=== PATIENT | female | born 1970 | race Caucasian/White ===

== ENCOUNTER 2016-10-03 09:24 | Inpatient (IN) | payer BC ==
[2016-09-30 14:33] VITALS: BMI 27.5
[~2016-10-03] VITALS: Ht 165.1 cm; Wt 79.0 kg
[2016-10-03] VITALS (19 sets, daily range): BP systolic 107–150; BP diastolic 43–77; PULSE 58–74; RESP 15–36; Ht 165.1 cm; Wt 79.0 kg
[~2016-10-03 09:24] MED LIST: BUPIVACAINE 0.25% (MPF) 30 ML INJ INJ ONE
[2016-10-03] MEDS ORDERED: AMOX1TAB10 PO (10:28)
[2016-10-03] MEDS ORDERED: CROM10DR6 BOTH EYES (10:28)
[2016-10-03] MEDS ORDERED: NALT1TAB PO (10:28)
--- NOTE | 2016-10-03 11:40 | HPN ---
Date/Time of Note Date/Time of Note DATE: 10/03/16 TIME: 11:40 Interval H&P Admission Note Pt. seen H&P reviewed: No system changes LEN GUTHRIE MD Oct 03, 2016 11:40
[2016-10-03] MEDS ORDERED: POLYMYXIN/BACITRACIN 1L IRRIG ONE (11:46)
[2016-10-03] MEDS ORDERED: ACETAMINOPHEN 325 MG TAB PO PRN (12:00)
[2016-10-03] MEDS ORDERED: NALOXONE (0.4 MG/ML) INJ IV PRN (12:00)
[2016-10-03] MEDS ORDERED: DIPHENHYDRAMINE 50 MG INJ IV PRN ×2 (12:00→13:30)
[2016-10-03] MEDS ORDERED: AL HYDROX/MG HYDROX/SIMETH 30 ML CUP PO PRN (12:00)
[2016-10-03] MEDS: CEFAZOLIN 1 GM/50 ML (PMX) 50 ML IVPB SCH ×2 (12:00→20:22)
[2016-10-03] MEDS ORDERED: DIPHENHYDRAMINE 25 MG CAP PO PRN (12:00)
[2016-10-03] MEDS ORDERED: BISACODYL 10 MG SUPP PR PRN (12:00)
[2016-10-03] MEDS ORDERED: CEPASTAT LOZENGE MT PRN (12:00)
[2016-10-03] MEDS ORDERED: ONDANSETRON 4 MG INJ IV PRN ×2 (12:00→13:30)
[2016-10-03] MEDS ORDERED: BUPIVACAINE 0.25% (MPF) 30 ML INJ ONE (12:05)
[2016-10-03] MEDS ORDERED: BUPIVACAINE 0.25%/EPI (SDV) 30 ML INJ ONE (12:05)
[2016-10-03] MEDS ORDERED: CA GLUCONATE (GM) 10% 10ML INJ ONE (12:06)
[2016-10-03] MEDS ORDERED: THROMBIN 5000 UNIT VIAL ONE (12:08)
[2016-10-03] MEDS ORDERED: LIDOCAINE 100 MG SYRINGE ONE (12:11)
[2016-10-03] MEDS ORDERED: CEFAZOLIN 1 GM INJ ONE (12:11)
[2016-10-03] MEDS ORDERED: DEXAMETHASONE 4 MG/ML 1 ML INJ ONE (12:11)
[2016-10-03] MEDS ORDERED: ONDANSETRON 4 MG INJ ONE (12:11)
[2016-10-03] MEDS ORDERED: PROPOFOL 20 ML ONE (12:11)
[2016-10-03] MEDS ORDERED: NEOSTIGMINE 3 MG/3 ML SYRINGE ONE (12:11)
[2016-10-03] MEDS ORDERED: GLYCOPYRROLATE 1 MG INJ ONE (12:11)
[2016-10-03] MEDS ORDERED: ROCURONIUM 50 MG INJ ONE (12:11)
[2016-10-03] MEDS ORDERED: MIDAZOLAM 1 MG/ML 2 ML INJ ONE (12:11)
[2016-10-03] MEDS ORDERED: CA CHLORIDE 10% 10 ML SYRINGE ONE (12:14)
[2016-10-03] MEDS ORDERED: BUPIVACAINE 0.25% (MPF) 30 ML INJ INJ ONE (12:59)
[2016-10-03] MEDS ORDERED: POLYMYXIN/BACITRACIN 1L IRRIG IRR ONE (12:59)
[2016-10-03] MEDS ORDERED: SURGIFOAM POWDER 1 GM KIT ONE (12:59)
[2016-10-03] MEDS ORDERED: THROMBIN 5000 UNIT VIAL TOP ONE (13:02)
[2016-10-03] MEDS ORDERED: FENTAnyl 50 MCG/ML VIAL ONE (13:12)
[2016-10-03] MEDS ORDERED: MEPERIDINE 25 MG INJ IV PRN (13:30)
[2016-10-03] MEDS ORDERED: LABETALOL HCL 20MG INJ IV PRN (13:30)
[2016-10-03] MEDS ORDERED: HYDROmorphONE (0.2 MG/ML) 10ML SYG IV PRN ×3 (13:30)
[2016-10-03] MEDS ORDERED: MIDAZOLAM 1 MG/ML 2 ML INJ IV PRN (13:30)
[2016-10-03] MEDS ORDERED: hydrALAzine 20 MG INJ IV PRN (13:30)
[2016-10-03] MEDS ORDERED: FENTAnyl 50 MCG/ML VIAL IV PRN ×3 (13:30)
[2016-10-03] MEDS ORDERED: EPHEDrine SULFATE 50 MG/5 ML SYG IV PRN (13:30)
[2016-10-03] MEDS ORDERED: TRIMETHOBENZAMIDE 100 MG/ML VIAL IM PRN (13:30)
[2016-10-03] MEDS ORDERED: METOCLOPRAMIDE 10 MG INJ ONE (13:39)
[2016-10-03] MEDS: HYDROmorphONE 0.2 MG/ML PCA IV SCH ×2 (14:36→21:16)
[2016-10-03] MEDS ORDERED: LACTATED RINGER'S 1,000 ML IV* ONE (15:30)
[2016-10-03] MEDS ORDERED: CEFAZOLIN 2 GM/50 ML (PMX) 50 ML IVPB ONE (15:30)
--- NOTE | 2016-10-03 16:48 | RADRPT ---
PROCEDURE: XR Lumbar Spine one view. CLINICAL INDICATION: Low back pain. Intraoperative. TECHNIQUE: Prone portable cross-table lateral. COMPARISON: No prior studies are available for comparison. FINDINGS: For the purposes of this report, the last apparent true disc level is considered to be L5-S1. Based on this, the posterior needle marker is are present at lower L3 spinous process level and upper L5 spinous process level. IMPRESSION: 1. Intraoperative imaging as described above. RPTAT: QQ .Kenrick Singh MD, Date Time Electronically viewed and signed by .Kenrick Singh MD, on 10/03/2016 16:48 .R/
--- NOTE | 2016-10-03 16:49 | RADRPT ---
PROCEDURE: XR Lumbar Spine one view. CLINICAL INDICATION: Low back pain. Intraoperative. TECHNIQUE: Prone portable cross-table lateral. COMPARISON: Prior study done earlier the same day. FINDINGS: For the purposes of this report, the last apparent true disc level is considered to be L5-S1. Based on this, the posterior surgical instrument is present overlying the L5-S1 level. IMPRESSION: 1. Intraoperative imaging as described above. RPTAT: QQ .Kenrick Snigh MD, MD Date Time Electronically viewed and signed by .Kenrick Singh MD, on 10/03/2016 16:48 .R/
[2016-10-03] MEDS: D5W-0.45 NACL + KCL 20 MEQ 1,000 ML IV SCH ×2 (17:18→21:55)
[2016-10-03] MEDS: DOCUSATE SODIUM 100 MG CAP PO SCH (20:22)
[2016-10-03] MEDS: CYCLOBENZAPRINE 10 MG TAB PO PRN (20:30)
--- NOTE | 2016-10-03 21:17 | OPR ---
DATE OF OPERATION: 10/03/2016 PREOPERATIVE DIAGNOSES: Right L5-S1 disk herniation with radiculopathy. POSTOPERATIVE DIAGNOSIS: Right L5-S1 disk herniation with radiculopathy. OPERATION PERFORMED: 1. Right L5-S1 diskectomy. 2. Lateral localizing film x2. 3. Use of operative microscope. 4. Intraoperative neuromonitoring (1 hour). 5. Epidural injection via catheter. PRIMARY SURGEON: Joseluis Montemayor MD WRAPPER OPERATOR: DARCIE Viveros NEED FOR BUSINESS SERVICES OFFICER: During this spinal surgical procedure, my plumber's assistant was used to retract and protect the spinal nerves and dural sac. My plumber's assistant also employed the suction catheters to evacuate blood from the surgical field to improve visualization of the neural structures. The plumber's assistant was medically necessary to facilitate the completion of the surgery in a safe and expeditious manner. [facility] regulations, as well as hospital bylaws, preclude the use of non-licensed health care personnel, such as operating room technicians, to perform these functions. FINDINGS: Neuromonitoring at the start of the case revealed right S1 amplitude down 40%. At the end of the case, this returned to normal. The patient had a right-sided herniation at L5-S1. ESTIMATED BLOOD LOSS: 20 mL. DRAINS: None. SPECIMENS: Disk COMPLICATIONS OF PROCEDURES: None. ANESTHESIOLOGIST: Devon Mcdonald MD TYPE OF ANESTHESIA: General. INDICATIONS FOR PROCEDURE: This is a 46-year-old female with right lumbosacral radiculopathy in the setting of a disk herniation. She had failed nonoperative measures; therefore, I recommended proceeding with the above-mentioned surgery. Preoperatively, we discussed the risks, benefits, and alternatives. She understood and wished to proceed. DESCRIPTION OF PROCEDURE IN DETAIL: The patient was identified in the preoperative holding area, given Ancef antibiotic, taken to the operating room, where she was successfully placed under general anesthesia. Neuromonitoring leads were placed, sequential compressive devices were applied. Neuromonitoring was utilized during the procedure for 1 hour to include SSEP, MEP, and EMG. This was performed by FNZ. Start time was 12:45 p.m., closure time was 1:45 p.m. Nerve signals at start showed right S1 amplitude down 40%. The patient was placed on the operating room table, prone position over a Wesley frame. All bony prominences were well padded. The back was then prepped and draped in usual sterile fashion. Spinal needles were placed, lateral localizing films obtained to confirm the correct level. The subcutaneous tissue was injected with Marcaine and epinephrine. An incision was then made over the L5-S1 level. Incision was taken down to the dorsal fascia, which was incised with Bovie cautery. I then subperiosteally dissected the right L5 lamina. Jackie retractor was placed. Kerrison was placed under what was felt to be the L5 lamina and repeat lateral films obtained to confirm the correct levels. Once this was confirmed, microscope was brought in and a right-sided hemilaminotomy was performed. Ligamentum flavum was the sharply dissected. I then identified the nerve root which my plumber's assistant retracted medially. I made an annulotomy followed by limited microdiskectomy. Once this was done, all nerve signals returned to normal. I then irrigated the disk space and the wound. Hemostasis was achieved with Surgifoam and bipolar cautery. At this point, all nerve signals were normal. I passed an epidural catheter through which I injected 100 mcg of fentanyl. Anesthesiologist thor peripheral blood, which was spun using the [employer] device, the PPP was mixed with thrombin and injected over the dura for hemostatic purposes. Retractors were removed and I closed the deep fascia with #1 Vicryl stitch. I closed subcutaneous tissue with 2-0 Vicryl stitch. Microscope was taken off the field. A 4-0 Monocryl closure was then performed. Dermabond was then applied. The patient was then awakened from anesthesia and taken to recovery room in stable condition. Lap, sponge counts were correct x2. There were no apparent complications during the procedure. The patient will be admitted to the [facility] for routine postoperative care to include pain control, neurovascular checks, antibiotics, and physical therapy. Dictated By: JOSELUIS FREITAS/KELLY Conf#: [id number] DID#: [id number] LEANNE
[2016-10-04 00:34] VITALS: BP 100/57; PULSE 83; RESP 17
[2016-10-04] MEDS: CEFAZOLIN 1 GM/50 ML (PMX) 50 ML IVPB SCH (03:23)
[2016-10-04] MEDS: D5W-0.45 NACL + KCL 20 MEQ 1,000 ML IV SCH ×3 (03:24→18:00)
[2016-10-04 05:42] LABS: ADD SCAN DIFF NO
[2016-10-04 05:48] LABS: BASOPHILS % 0.2 % (0.0-2.0); EOSINOPHILS % 0.1 % (0.0-7.0); HEMATOCRIT 34.4 % (37.0-47.0); HEMOGLOBIN 11.6 g/dl (12.0-16.0); LYMPHOCYTES # 3.3 10^3/ul (0.8-2.9); LYMPHOCYTES % 19.1 % (15.0-51.0); MEAN CORPUSCULAR HEMOGLOBIN 28.3 pg (29.0-33.0); MEAN CORPUSCULAR HGB CONC 33.7 g/dl (32.0-37.0); MEAN CORPUSCULAR VOLUME 83.9 fl (82.0-101.0); MEAN PLATELET VOLUME 10.4 fl (7.4-10.4); MONOCYTE # 1.3 10^3/ul (0.3-0.9); MONOCYTES % 7.3 % (0.0-11.0); NEUTROPHIL # 12.5 10^3/ul (1.6-7.5); NEUTROPHILS % 72.9 % (39.0-77.0); PLATELET COUNT 256 10^3/UL (140-415); WHITE BLOOD COUNT 17.1 10^3/ul (4.8-10.8)
[2016-10-04] MEDS: PANTOPRAZOLE 40 MG INJ IV SCH (05:52)
[2016-10-04 06:39] LABS: POTASSIUM 3.9 mmol/L (3.5-5.1)
[2016-10-04 06:42] LABS: CREATININE 0.7 mg/dl (0.44-1.00)
[2016-10-04 06:43] LABS: CALCIUM 8.5 mg/dl (8.4-10.2); MAGNESIUM 1.9 mg/dl (1.7-2.5)
[2016-10-04] MEDS: HYDROmorphONE 0.2 MG/ML PCA IV SCH (07:40)
[2016-10-04 08:18] VITALS: BP 100/59; RESP 17
[2016-10-04] MEDS ORDERED: FLUCONAZOLE 150 MG TAB PO ONE (09:00)
[2016-10-04] MEDS: DOCUSATE SODIUM 100 MG CAP PO SCH ×2 (09:05→23:06)
[2016-10-04] MEDS ORDERED: HYDROCODONE/APAP (10/325) TAB PO SCH (09:30)
[2016-10-04 09:47] LABS: ADD UMIC NO; URINE BILIRUBIN (Dip) NEGATIVE (NEGATIVE); URINE BLOOD (Dip) NEGATIVE (NEGATIVE); URINE COLOR LT. YELLOW (YELLOW); URINE GLUCOSE (Dip) NEGATIVE (NEGATIVE); URINE KETONES (Dip) NEGATIVE (NEGATIVE); URINE LEUKOCYTE ESTERASE (Dip) NEGATIVE (NEGATIVE); URINE NITRITE (Dip) NEGATIVE (NEGATIVE); URINE TOTAL PROTEIN (Dip) NEGATIVE (NEGATIVE); URINE UROBILINOGEN (Dip) 0.2 E.U./dL (0.1-1.0)
[2016-10-04] MEDS ORDERED: HYDROCODONE/APAP (10/325) TAB PO PRN (10:00)
--- NOTE | 2016-10-04 11:06 | DS ---
DATE OF ADMISSION: 10/03/2016 DATE OF DISCHARGE: 10/05/2016 ADMITTING DIAGNOSIS: L5 to S1 disk herniation. DISCHARGE DIAGNOSIS: L5 to S1 disk herniation. PROCEDURE: The patient was taken to the operating room on 10/03/2016, underwent L5 to S1 microdiskectomy. HOSPITAL COURSE: The patient was admitted to the [facility] after undergoing the above procedure. Her postoperative course was uncomplicated. She was not cleared by PT on post-op day 1. By postoperative day 2, she was deemed stable for discharge with followup arranged with the undersigned. Dictated By: LEN GUTHRIE MD BB/KELLY Conf#: [id number] DID#: [id number] MTDD
[2016-10-04] MEDS: HYDROCODONE/APAP (10/325) TAB PO PRN ×2 (14:54→19:23)
[2016-10-04] MEDS: HYDROmorphONE 1 MG/ML SYG IV PRN (17:13)
--- NOTE | 2016-10-04 18:31 | CONS ---
Date/Time of Note Date/Time of Note DATE: 10/04/16 TIME: 18:26 Assessment/Plan Assessment/Plan Problems: (1) Status post lumbar discectomy Status: Acute Comment: Patient is immediately postoperative. She reports she is having significant amount of pain and does not believe that she will be able to go home this evening. This is possibly an appropriate decision given that she lives in a two-story house. However we will see how she does with adjustment pain medication and physical therapy. Consultation Date/Type/Reason Admit Date/Time October 03, 2016 Date of Consultation: Oct 03, 2016 Type of Consultation: Internal medicine Reason for Consultation Postoperative assistance Referring Provider: LEN GUTHRIE MD Hx of Present Illness 46-year-old female who lives in a two-story house with her 16-year-old and [id number] twins. She had a history of a back injury many years ago. She has been having right leg sciatic symptoms for some time and finally has come in for surgical repair. She is now postoperative and reports that her right leg symptoms stopped after surgery. She reports she is otherwise in good health and has no major medical issues actively at the time of coming into the hospital for surgery. She is complaining of a decent amount of back pain at the surgical incision site. Constitutional: no complaints Eyes: no complaints ENT: no complaints Respiratory: no complaints Cardiovascular: no complaints Gastrointestinal: no complaints Genitourinary: no complaints Musculoskeletal: back pain Skin: no complaints Neurologic: no complaints Past Medical History Remote history of allergic rhinitis; history of dysthymia; sciatica Past Surgical History Past Surgical Hx: noncontributory Family History Significant Family History: no pertinent family hx Social History Alcohol Use: rarely Smoking Status: Never smoker Drug Use: none Other Social History lives with her spouse and 3 children and is two-story home Exam/Review of Systems Vital Signs Vitals Vital Signs Date Time Temp Pulse Resp B/P Pulse Ox O2 Delivery O2 Flow Rate FiO2 10/04/16 08:18 99.0 61 17 100/59 97 10/04/16 00:34 Room Air 10/03/16 18:06 2.0 Intake and Output 10/03/16 10/03/16 10/04/16 15:00 23:00 07:00 Intake Total 1700 ml 650 ml 1566 ml Output Total 25 ml 1000 ml 1400 ml Balance 1675 ml -350 ml 166 ml Exam Constitutional: alert, oriented ENMT: mucosa pink and moist, nl external ears & nose, nl lips & teeth, nl nasal mucosa & septum Neck: non-tender, supple Respiratory: clear to auscultation, normal air movement Cardiovascular: nl pulses, regular rate and rhythm Gastrointestinal: nl liver, spleen, non-tender, soft Extremities: normal pulses Results Result Diagram: 10/04/16 0430 10/04/16 0430 Results 24 hrs Laboratory Tests Test 10/04/16 04:30 10/04/16 06:10 Anion Gap 14 Basophils # 0.0 Basophils % 0.2 Blood Urea Nitrogen 10 Calcium Level 8.5 Carbon Dioxide Level 24 Chloride Level 105 Creatinine 0.70 Eosinophils # 0.0 Eosinophils % 0.1 Glucose Level 105 Hematocrit 34.4 L Hemoglobin 11.6 L Lymphocytes # 3.3 H Lymphocytes % 19.1 Magnesium Level 1.9 Mean Corpuscular Hemoglobin 28.3 L Mean Corpuscular Hemoglobin Concent 33.7 Mean Corpuscular Volume 83.9 Mean Platelet Volume 10.4 Monocytes # 1.3 H Monocytes % 7.3 Neutrophils # 12.5 H Neutrophils % 72.9 Nucleated Red Blood Cells # 0.0 Nucleated Red Blood Cells % 0.0 Platelet Count 256 Potassium Level 3.9 Red Blood Count 4.10 L Red Cell Distribution Width 13.0 Sodium Level 139 White Blood Count 17.1 H Urine Bilirubin NEGATIVE Urine Clarity CLEAR Urine Color LT. YELLOW Urine Glucose NEGATIVE Urine Hemoglobin NEGATIVE Urine Ketones NEGATIVE Urine Leukocyte Esterase NEGATIVE Urine Nitrite NEGATIVE Urine Specific [place] 1.010 Urine Total Protein NEGATIVE Urine Urobilinogen 0.2 E.U./dL Urine pH 5.5 Medications Medications Current Medications Potassium Chloride/Dextrose/ Sod Cl (D5-1/2ns + KCl 20 Meq) 1,000 ml @ 100 mls/ hr Q10H IV Last administered on 10/04/16 03:24; Admin Dose 100 MLS/HR; Start 10/03/16 at 12:00 Acetaminophen/ Hydrocodone Bitart (Trion (10/325)) 1 tab Q4H PRN PO PAIN LEVEL 1-5; Start 10/04/16 at 10:00 Acetaminophen/ Hydrocodone Bitart (Trion (10/325)) 2 tab Q4H PRN PO PAIN LEVEL 6-10 Last administered on 10/04/16 14:54; Admin Dose 2 TAB; Start 10/04/16 at 10:00 Hydromorphone HCl (Dilaudid) 0.2 mg Q1H PRN IV BREAKTHROUGH PAIN Last administered on 10/04/16 17:13; Admin Dose 0.2 MG; Start 10/03/16 at 12:00 Ondansetron HCl (Zofran Inj) 4 mg Q6H PRN IV NAUSEA AND/OR VOMITING Last administered on 10/04/16 17:13; Admin Dose 4 MG; Start 10/03/16 at 12:00 Bisacodyl (Dulcolax Supp) 10 mg DAILY PRN [place] CONSTIPATION; Start 10/03/16 at 12 :00 Docusate Sodium (Colace) 100 mg BID PO Last administered on 10/04/16 09:05; Admin Dose 100 MG; Start 10/03/16 at 21:00 Pantoprazole (Protonix Iv) 40 mg DAILY@06 IV Last administered on 10/04/16 05: 52; Admin Dose 40 MG; Start 10/04/16 at 06:00 Al Hydrox/Mg Hydrox/Simethicone (Mag-Al Plus) 15 ml Q6H PRN PO CONSTIPATION/ DYSPEPSIA; Start 10/03/16 at 12:00 Acetaminophen (Tylenol Tab) 650 mg Q4H PRN PO THORNTON OR TEMP GREATER THAN 101.3F; Start 10/03/16 at 12:00 Cyclobenzaprine HCl (Flexeril) 10 mg TID PRN PO MUSCLE SPASMS Last administered on 10/03/16 20:30; Admin Dose 10 MG; Start 10/03/16 at 12:00 Phenol (Cepastat Lozenge) 1 lozenge PRN PRN [place] SORE THROAT; Start 10/03/16 at 12:00 Diphenhydramine HCl (Benadryl) 25 mg Q6H PRN PO ITCHING; Start 10/03/16 at 12: 00 Diphenhydramine HCl (Benadryl) 25 mg Q6H PRN IV ITCHING; Start 10/03/16 at 12: 00 Naloxone HCl (Narcan) 0.2 mg Q2M PRN IV RR 8 BREATHS/MIN OR LESS; Start at 12:00 Hydromorphone HCl (Dilaudid ENVIRONMENTAL HEALTH MANAGER) ENVIRONMENTAL HEALTH MANAGER to be started in PACU Q4PCA IV Last administered on 10/04/16t 07:40; Admin Dose 6 MG; Start 10/03/16 at 12:00; Status Future Hold Miscellaneous Information 1. Hold ENVIRONMENTAL HEALTH MANAGER at 1,000... ENVIRONMENTAL HEALTH MANAGER IV ; Start 10/03/16 at 12: 00 QUINTIN THOMAS MD Oct 04, 2016 18:31
[2016-10-04 20:47] VITALS: BP 121/59; RESP 20
[2016-10-04] MEDS: CYCLOBENZAPRINE 10 MG TAB PO PRN (23:06)
[2016-10-05] MEDS: HYDROCODONE/APAP (10/325) TAB PO PRN ×2 (00:10→05:05)
[2016-10-05] MEDS: HYDROmorphONE 1 MG/ML SYG IV PRN (01:47)
[2016-10-05] MEDS ORDERED: KETOROLAC 30 MG INJ IV ONE (02:38)
[2016-10-05] MEDS: D5W-0.45 NACL + KCL 20 MEQ 1,000 ML IV SCH ×2 (04:00→08:56)
[2016-10-05] MEDS: PANTOPRAZOLE 40 MG INJ IV SCH (05:01)
[2016-10-05 08:15] VITALS: BP 133/61; RESP 16
[2016-10-05] MEDS: DOCUSATE SODIUM 100 MG CAP PO SCH (08:55)
[2016-10-05] MEDS: CYCLOBENZAPRINE 10 MG TAB PO PRN ×2 (08:55→14:43)
--- NOTE | 2016-10-05 08:56 | CONS ---
Date/Time of Note Date/Time of Note DATE: 10/05/16 TIME: 08:54 Assessment/Plan Assessment/Plan Chief Complaint/Hosp Course 46-year-old female who lives in a two-story house with her 16-year-old and [id number] twins. She had a history of a back injury many years ago. She has been having right leg sciatic symptoms for some time and finally has come in for surgical repair. She is now postoperative and reports that her right leg symptoms stopped after surgery. She reports she is otherwise in good health and has no major medical issues actively at the time of coming into the hospital for surgery. She is complaining of a decent amount of back pain at the surgical incision site. Problems: (1) Status post lumbar discectomy Status: Acute Comment: Patient is reporting some degree of pain although it is my impression she would actually do best after discharge. Given that she informs us that the [place] is causing itching transition over to Percocet would probably be in order here. In addition is a legitimate consideration also give her on nonsteroidal anti-inflammatory drugs such as Celebrex as maintenance. Consultation Date/Type/Reason Admit Date/Time Initial Consult Date 10/03/16 Type of Consultation: Internal medicine Referring Provider: LEN GUTHRIE MD 24 HR Interval Summary Free Text/Dictation Patient complains that the [place] has given her some degree of itching and is not adequately managing her pain. She received a dose of Toradol 5 hours ago which she did said did help her with her pain. Constitutional: no complaints (Patient denies any fevers chills or sweats) Detailed Summary Respiratory: no complaints Cardiovascular: no complaints Gastrointestinal: no complaints Exam/Review of Systems Vital Signs Vitals Vital Signs Date Time Temp Pulse Resp B/P Pulse Ox O2 Delivery O2 Flow Rate FiO2 10/05/16 08:15 98.1 58 16 133/61 99 10/04/16 00:34 Room Air 10/03/16 18:06 2.0 Intake and Output 10/04/16 10/04/16 10/05/16 15:00 23:00 07:00 Intake Total 1500 ml Balance 1500 ml Exam Constitutional: alert, oriented Neck: non-tender, supple Respiratory: clear to auscultation, normal air movement Results Result Diagram: 10/04/16 0430 10/04/16 0430 Medications Medications Current Medications Potassium Chloride/Dextrose/ Sod Cl (D5-1/2ns + KCl 20 Meq) 1,000 ml @ 100 mls/ hr Q10H IV Last administered on 10/04/16 03:24; Admin Dose 100 MLS/HR; Start 10/03/16 at 12:00 Acetaminophen/ Hydrocodone Bitart ([place] (10/325)) 1 tab Q4H PRN PO PAIN LEVEL 1-5; Start 10/04/16 at 10:00 Acetaminophen/ Hydrocodone Bitart ([place] (10/325)) 2 tab Q4H PRN PO PAIN LEVEL 6-10 Last administered on 10/05/16 05:05; Admin Dose 2 TAB; Start 10/04/16 at 10:00 Hydromorphone HCl (Dilaudid) 0.2 mg Q1H PRN IV BREAKTHROUGH PAIN Last administered on 10/05/16 01:47; Admin Dose 0.2 MG; Start 10/03/16 at 12:00 Ondansetron HCl (Zofran Inj) 4 mg Q6H PRN IV NAUSEA AND/OR VOMITING Last administered on 10/04/16 17:13; Admin Dose 4 MG; Start 10/03/16 at 12:00 Bisacodyl (Dulcolax Supp) 10 mg DAILY PRN [place] CONSTIPATION; Start 10/03/16 at 12 :00 Docusate Sodium (Colace) 100 mg BID PO Last administered on 10/04/16 23:06; Admin Dose 100 MG; Start 10/03/16 at 21:00 Pantoprazole (Protonix Iv) 40 mg DAILY@06 IV Last administered on 10/05/16 05: 01; Admin Dose 40 MG; Start 10/04/16 at 06:00 Al Hydrox/Mg Hydrox/Simethicone (Mag-Al Plus) 15 ml Q6H PRN PO CONSTIPATION/ DYSPEPSIA; Start 10/03/16 at 12:00 Acetaminophen (Tylenol Tab) 650 mg Q4H PRN PO THORNTON OR TEMP GREATER THAN 101.3F; Start 10/03/16 at 12:00 Cyclobenzaprine HCl (Flexeril) 10 mg TID PRN PO MUSCLE SPASMS Last administered on 10/04/16 23:06; Admin Dose 10 MG; Start 10/03/16 at 12:00 Phenol (Cepastat Lozenge) 1 lozenge PRN PRN [place] SORE THROAT; Start 10/03/16 at 12:00 Diphenhydramine HCl (Benadryl) 25 mg Q6H PRN PO ITCHING Last administered on 00:55; Admin Dose 25 MG; Start 10/03/16 at 12:00 Diphenhydramine HCl (Benadryl) 25 mg Q6H PRN IV ITCHING; Start 10/03/16 at 12: 00 Naloxone HCl (Narcan) 0.2 mg Q2M PRN IV RR 8 BREATHS/MIN OR LESS; Start at 12:00 Hydromorphone HCl (Dilaudid BACK SHOE CUTTER) BACK SHOE CUTTER to be started in PACU Q4PCA IV Last administered on 10/04/16 07:40; Admin Dose 6 MG; Start 10/03/16 at 12:00; Status Future Hold Miscellaneous Information 1. Hold BACK SHOE CUTTER at 1,000... BACK SHOE CUTTER IV ; Start 10/03/16 at 12: 00 QUINTIN THOMAS MD Oct 05, 2016 08:56
[2016-10-05] MEDS ORDERED: CELECOXIB 100 MG CAP PO SCH (09:00)
--- NOTE | 2016-10-05 10:18 | PN ---
Date/Time of Note Date/Time of Note DATE: 10/05/16 TIME: 10:16 Assessment/Plan Lines/Catheters IV Catheter Type (from Nrsg): Saline Lock Posada in Place (from Nrsg): No Assessment/Plan Assessment/Plan s/p microdiscectomy patient is stable for D/C from ortho perspective D/C home if cleared by PT D/C norco (post op rx) percocet rx in chart, please give to patient before d/c patient may take percocet with benadryl for itching Subjective 24 Hr Interval Summary pt notes improvement in leg symptoms c/o post-operative back pain, itching 2/2 norco expresses anxiety over going home and possibly having more back pain Exam/Review of Systems Vital Signs Vitals Vital Signs Date Time Temp Pulse Resp B/P Pulse Ox O2 Delivery O2 Flow Rate FiO2 10/05/16 08:15 98.1 58 16 133/61 99 10/04/16 00:34 Room Air 10/03/16 18:06 2.0 Intake and Output 10/04/16 10/04/16 10/05/16 15:00 23:00 07:00 Intake Total 1500 ml Balance 1500 ml Exam Free Text/Dictation NVID skin intact, no lesions/rash noted Results Result Diagram: 10/04/160 10/04/16 0430 TONYA CRUZ PA-C Oct 05, 2016 10:17
[2016-10-05] MEDS: OXYCODONE/ACETAMINOPHEN (10/325) TAB PO PRN ×2 (11:20→15:07)
[2016-10-06] MEDS ORDERED: PANTOPRAZOLE (EC) 40 MG TAB PO SCH (06:00)
== END 2016-10-05 15:20 | disposition home or self-care (01) | DRG 520 ==
LOC: SDS 09:24 → EDSTATUS 14:30 → MS1 15:35 → SDS 10-05 10:04
PROVIDERS: ADMIT Specialist; ATTEND Specialist
PROC: 0SB40ZZ Excision of Lumbosacral Disc, Open Approach (ICD-10-PCS; principal; 2016-10-03 12:00)
DX: M51.17 Intervertebral disc disorders with radiculopathy, lumbosacral region (principal)
CPT/HCPCS: 72020; 80048; 81003; 83735; 84703; 85025; 86999; 87086; 97116; 97530; C9113; J0610; J0690; J1100; J1170; J1200; J1885; J2001; J2175; J2250; J2405; J2710; J2765; J3010; J3480